=== PATIENT | female | born 1975 | race Two or more races ===

== ENCOUNTER → 2021-12-19 | Emergency (ER) | payer MEDICAID, OTHER ==
[~2021-12-19] VITALS: Ht 162.6 cm; Wt 74.8 kg
[~2021-12-19] MED LIST: ALBU18; TOPI25TA43
[2021-12-19 00:48] VITALS: BP 148/94
== END | disposition home or self-care (01) ==
LOC: ER 00:19
DX: S80.01XA Contusion of right knee, initial encounter (principal); S09.90XA Unspecified injury of head, initial encounter; M79.10 Myalgia, unspecified site; J45.909 Unspecified asthma, uncomplicated; Z79.899 Other long term (current) drug therapy; Z88.6 Allergy status to analgesic agent; Z88.8 Allergy status to other drugs, medicaments and biological substances; W18.39XA Other fall on same level, initial encounter; Y93.89 Activity, other specified; Y92.89 Other specified places as the place of occurrence of the external cause; Y99.8 Other external cause status
CPT/HCPCS: 70450; 70486; 72125; 72170; 73070; 73560

== ENCOUNTER 2022-03-15 18:08 | Emergency (ER) | payer OTHER ==
[~2022-03-15] VITALS: Ht 162.6 cm; Wt 165.0 kg
[2022-03-15] MEDS ORDERED: AMOXICILLIN/CLAVUL 875 MG TAB PO ONE (22:30)
[2022-03-15] MEDS ORDERED: OXYCODONE W/ ACETAMINOPHEN 5/325MG TABLET PO ONE (22:30)
[2022-03-16] MEDS ORDERED: LIDOCAINE 1% HCL (LOCAL ANESTH.) INJ 20ML MDV ID ONE (03:45)
[2022-03-16 04:00] VITALS: BP 145/94
[2022-03-16] MEDS ORDERED: BACITRACIN TOP OINT 1 UD PKG TOP ONE (04:15)
[2022-03-16] MEDS ORDERED: PERCOT PO (04:40)
[2022-03-16] MEDS ORDERED: AMOX500T86 PO (04:40)
[2022-03-16] MEDS ORDERED: ONDA-144 PO (04:40)
== END 2022-03-16 04:45 | disposition home or self-care (01) ==
LOC: ER 18:08
DX: S81.812A Laceration without foreign body, left lower leg, initial encounter (principal); J45.909 Unspecified asthma, uncomplicated; Z98.51 Tubal ligation status; W54.0XXA Bitten by dog, initial encounter; Y93.89 Activity, other specified; Y92.89 Other specified places as the place of occurrence of the external cause; Y99.8 Other external cause status
CPT/HCPCS: 12002; 73590